=== PATIENT | female | born 1960 | race Caucasian/White ===

== ENCOUNTER 2020-06-21 15:21 | Inpatient (IN) | payer BC, MEDICARE ==
[2020-06-21] MEDS: Sodium Chloride 0.9% 10 ML Syringe FLUSH PRN (16:08)
[2020-06-21] MEDS: Lactated Ringers 1,000 ML IV SCH (16:10)
[2020-06-21] MEDS ORDERED: PEG 400/Propylene Glycol Ophth Soln 15 ML Bottle EYEBOTH PRN (17:21)
[2020-06-21] MEDS ORDERED: Lactated Ringers 1,000 ML IV SCH (17:30)
[2020-06-21] MEDS ORDERED: Iopamidol 755 Mg/ML 100 ML Bottle IV ONE (17:32)
[2020-06-21] MEDS: Ondansetron 4 MG/2 ML SDV IVPUSH PRN ×2 (17:59→22:19)
[2020-06-21] MEDS ORDERED: Diatrizoate Meglumine/Diatrizoate Sodium 37% 30 ML Bottle PO ONE (18:01)
[2020-06-21] MEDS ORDERED: metroNIDAZOLE/Normal Saline 500 MG in Premix Bag 1 BAG IV SCH (18:30)
--- NOTE | 2020-06-21 18:31 | PCM.SN.2 ---
- Free Text/Narrative Note: CT scan reviewed with radiology. there is a segment of the sigmoid suggestive of diverticulitis. no abscess peritonitis noted. fair amount of stool in colon hemangioma vs cyst posteriorly right lobe of liver. I will empirically start an antibiotic.
--- NOTE | 2020-06-21 18:55 | CT ---
INDICATION: Left lower quadrant abdominal pain, anemia. CT ABDOMEN AND PELVIS WITH CONTRAST: Spiral 3.75 mm axial sections were obtained through the abdomen and pelvis with oral and IV contrast (67 mL Isovue- 370 at 2 mL per second) with sagittal and coronal reconstructions 06/21/20 - no comparisons. Total exam DLP was 448.65 mGy-cm. A small low-density lesion is noted in the posterior right lobe of the liver near the diaphragm and may represent hemangioma although other etiology could not be excluded. Followup study may be warranted depending upon clinical correlation. The liver was otherwise unremarkable except to note evidence of cholecystectomy. The spleen, pancreas, common bile duct, adrenal glands, and kidneys, appeared essentially normal. No retroperitoneal mass was identified. The appendix is absent compatible with history of its removal. No evidence of free air or bowel obstruction was identified. No inguinal or ventral hernia was seen. There does appear to be thickening of the wall of the gastric antrum which could be on the basis of peptic ulcer disease, but should be correlated clinically. Urinary bladder was unremarkable, except to note absence of the uterus compatible with history of hysterectomy. No additional mass lesions, organomegaly, or free fluid collections were identified in the abdomen or pelvis. Multiple phleboliths are noted in the pelvis. At the distal descending - proximal sigmoid colon, there is a loop of sigmoid colon extending into the pelvis inferiorly with slightly thickened wall suggested, this could represent a mild degree of diverticulitis or even colitis and should be correlated clinically in that regard. IMPRESSION: 1. Thickened wall gastric antrum could represent peptic ulcer disease, but should be correlated clinically. 2. Slightly thickened wall suggested in distal descending through proximal to mid sigmoid colon could represent colitis or possibly a mild degree of diverticulitis, no abscess or free air was seen. 3. Post hysterectomy, post appendectomy, post cholecystectomy. 4. Small low-density lesion in the posterior right lobe of the liver near the diaphragm, followup may be warranted, but most likely represents hemangioma. Report was given in person to Dr. Boyce immediately after the examination was completed. [facility]
[2020-06-21] MEDS: Levofloxacin/Dextrose 5%-Water 750 MG in Premix Bag 1 BAG IV SCH (19:25)
[2020-06-21] MEDS: Pregabalin 75 MG Cap PO SCH (21:04)
[2020-06-21] MEDS: metroNIDAZOLE/Normal Saline 500 MG in Premix Bag 1 BAG IV SCH (21:04)
[2020-06-21] MEDS: Acetaminophen 325 MG Tab PO PRN (21:28)
[2020-06-21] MEDS: busPIRone 15 MG Tab PO SCH (21:28)
[2020-06-22] MEDS: Lactated Ringers 1,000 ML IV SCH ×2 (02:17→16:54)
[2020-06-22] MEDS: Ondansetron 4 MG/2 ML SDV IVPUSH PRN ×2 (02:21→22:07)
[2020-06-22] MEDS: metroNIDAZOLE/Normal Saline 500 MG in Premix Bag 1 BAG IV SCH ×3 (05:11→20:35)
[2020-06-22] MEDS ORDERED: Albuterol/Ipratropium 3.0-0.5 MG/3 ML Neb Soln NEB ONE (07:51)
[2020-06-22] MEDS ORDERED: Pantoprazole 80 MG in Sodium Chloride 0.9% 100 ML IV ONE (08:05)
--- NOTE | 2020-06-22 08:09 | PCM.OPNOTE ---
- General Post-Op/Procedure Note Date of Surgery/Procedure: 06/22/20 Operative Procedure(s): egd with cold forceps biopsy Findings: antral ulcer Pre Op Diagnosis: melena Post-Op Diagnosis: antral ulcer Primary Surgeon: Yoav Boyce Anesthesia Provider: Yohan Lama Pathology: ulcer edge Complications: None Condition: Good Free Text/Narrative:: Intake & Output 06/21/20 06/22/20 06/22/20 22:59 06:59 14:59 Intake Total 9794 1198 Balance 6973 1198 see dictation #[id number]
[2020-06-22] MEDS: Morphine 2 MG/ML SYRINGE IVPUSH PRN ×2 (09:54→16:57)
[2020-06-22] MEDS: buPROPion 150 MG Tab.ER PO SCH (09:57)
[2020-06-22] MEDS: DULoxetine 30 MG Cap PO SCH (09:57)
[2020-06-22] MEDS: busPIRone 15 MG Tab PO SCH ×2 (09:58→20:24)
[2020-06-22] MEDS: Pregabalin 75 MG Cap PO SCH ×2 (10:03→20:24)
--- NOTE | 2020-06-22 10:22 | OR ---
DATE OF OPERATION: 06/21/2020 SURGEON: Yoav Boyce MD PROCEDURE PERFORMED: EGD with cold forceps biopsy. PREOPERATIVE DIAGNOSIS: History of melena and anemia. POSTOPERATIVE DIAGNOSIS: Antral ulcer. INDICATIONS FOR PROCEDURE: This is a 60-year-old white female who is admitted yesterday. She has a history of anemia as well as melenic stools. She was offered and accepted an EGD. DESCRIPTION OF PROCEDURE: After an excellent IV sedation was administered, bite block was inserted. Flexible endoscope was passed without difficulty down the patient's esophagus into the stomach. Stomach was insufflated. Scope was passed through the pylorus, second portion of the duodenum and slowly withdrawn. The following findings were noted. The duodenum was unremarkable. In the antrum, there was an antral ulcer with inflammation around the edges. No clots or visible vessel was noted. Circumferential biopsies were taken and submitted as well as photo. The esophagus was essentially unremarkable. The patient tolerated the procedure well, was taken to recovery room. We will be starting her on some IV Protonix. /[id number] /MODL
[2020-06-22] MEDS: Sucralfate 1 GM Tab PO SCH ×3 (11:58→20:24)
[2020-06-22] MEDS ORDERED: Morphine 2 MG/ML SYRINGE IVPUSH ONE (12:06)
[2020-06-22] MEDS ORDERED: Bisacodyl 10 MG Supp RECTAL PRN (12:07)
[2020-06-22] MEDS: Polyethylene Glycol 3350 Powder 17 GM Packet PO SCH ×2 (12:52→20:24)
[2020-06-22] MEDS: Docusate Sodium 100 MG Cap PO SCH (12:53)
[2020-06-22] MEDS: Levofloxacin/Dextrose 5%-Water 750 MG in Premix Bag 1 BAG IV SCH (18:22)
[2020-06-22] MEDS: Acetaminophen 325 MG Tab PO PRN (20:34)
[2020-06-23] MEDS: Morphine 2 MG/ML SYRINGE IVPUSH PRN ×3 (00:30→22:04)
[2020-06-23] MEDS: Lactated Ringers 1,000 ML IV SCH (03:46)
[2020-06-23] MEDS: metroNIDAZOLE/Normal Saline 500 MG in Premix Bag 1 BAG IV SCH (05:13)
[2020-06-23] MEDS: busPIRone 15 MG Tab PO SCH ×2 (08:21→20:56)
[2020-06-23] MEDS: Sucralfate 1 GM Tab PO SCH ×4 (08:21→20:56)
[2020-06-23] MEDS: DULoxetine 30 MG Cap PO SCH (08:21)
[2020-06-23] MEDS: Docusate Sodium 100 MG Cap PO SCH (08:22)
[2020-06-23] MEDS: Polyethylene Glycol 3350 Powder 17 GM Packet PO SCH ×2 (08:22→20:56)
[2020-06-23] MEDS: buPROPion 150 MG Tab.ER PO SCH (08:23)
[2020-06-23] MEDS: Pregabalin 75 MG Cap PO SCH ×2 (08:26→20:56)
--- NOTE | 2020-06-23 09:51 | PCM.SURGPN ---
- General Info Date of Service: 06/23/20 POD#: 1 Functional Status: Reports: Pain Controlled, Tolerating Diet, Ambulating, Urinating, Other (passing flatus has not moved bowels yet) - Patient Data Vitals - Most Recent: Last Vital Signs Temp 97.9 F 06/23/20 05:23 Pulse 64 06/23/20 05:23 Resp 16 06/23/20 05:23 BP 108/60 06/23/20 05:23 Pulse Ox 98 06/23/20 05:23 Weight - Most Recent: 58.922 kg I&O - Last 24 Hours: Intake & Output 06/22/20 06/23/20 06/23/20 22:59 06:59 14:59 Intake Total 1647 1013 Balance 1647 1013 Lab Results Last 24 Hrs: Laboratory Results - last 24 hr 06/23/20 Range/Units 06:20 WBC 4.1 (3.0-10.3) x10-3/uL RBC 2.40 L (3.60-5.20) x10(6)uL Hgb 7.8 L (11.4-15.5) g/dL Hct 23.2 L (34.2-48.2) % MCV 96.3 (76.7-100.5) fL MCH 32.7 (23.9-33.9) pg MCHC 33.9 (31.9-34.8) g/dL RDW 12.2 L (12.3-16.5) % Plt Count 172 (151-488) x10(3)uL MPV 9.5 (7.1-12.4) fL Add Manual Diff Yes Neutrophils % (Manual) 82 (46-82) % Lymphocytes % (Manual) 13 (13-37) % Monocytes % (Manual) 4 (4-12) % Eosinophils % (Manual) 1 (0-5) % Polychromasia Few Microcytosis Moderate H Med Orders - Current: Current Medications Acetaminophen (Tylenol) 650 mg PO Q6H PRN PRN Reason: Pain Last Admin: 06/22/20 20:34 Dose: 650 mg Documented by: Bisacodyl (Dulcolax) 10 mg RECTAL BID PRN PRN Reason: Constipation Bupropion HCl (Wellbutrin Xl) 300 mg PO DAILY [facility] Last Admin: 06/23/20 08:23 Dose: 300 mg Documented by: Buspirone HCl (Buspar) 7.5 mg PO BID [facility] Last Admin: 06/23/20 08:21 Dose: 7.5 mg Documented by: Docusate Sodium (Colace) 200 mg PO DAILY [facility] Last Admin: 06/23/20 08:22 Dose: 200 mg Documented by: Duloxetine HCl (Cymbalta) 30 mg PO DAILY [facility] Last Admin: 06/23/20 08:21 Dose: 30 mg Documented by: Morphine Sulfate (Morphine) 2 mg IVPUSH Q4H PRN PRN Reason: Pain Last Admin: 06/23/20 00:30 Dose: 2 mg Documented by: Ondansetron HCl (Zofran) 4 mg IVPUSH Q4H PRN PRN Reason: Nausea/Vomiting Last Admin: 06/22/20 22:07 Dose: 4 mg Documented by: Polyethylene Glycol (Miralax) 17 gm PO BID [facility] Last Admin: 06/23/20 08:22 Dose: 17 gm Documented by: Pregabalin (Lyrica) 75 mg PO BID [facility] Last Admin: 06/23/20 08:26 Dose: 75 mg Documented by: Propylene Glycol (Systane Lubricant) 0 ml EYEBOTH BID PRN PRN Reason: Dry Eyes Sodium Chloride (Saline Flush) 10 ml FLUSH ASDIRECTED PRN PRN Reason: Keep Vein Open Last Admin: 06/21/20 16:08 Dose: 10 ml Documented by: Sucralfate (Carafate) 1 gm PO QIDACANDBED [facility] Last Admin: 06/23/20 08:21 Dose: 1 gm Documented by: Discontinued Medications Albuterol/Ipratropium (Duoneb 3.0-0.5 Mg/3 Ml) 3 ml NEB ONETIME ONE Stop: 06/22/20 07:52 Last Admin: 06/22/20 08:11 Dose: 3 ml Documented by: Diatrizoate Meglum/Diatrizoate Sod (Gastrografin 37%) 30 ml PO . DIRECTED ONE Stop: 06/21/20 18:02 Last Admin: 06/21/20 18:11 Dose: 30 ml Documented by: Lactated Ringer's (Ringers, Lactated) 1,000 mls @ 125 mls/hr IV ASDIRECTED [facility] Last Admin: 06/23/20 03:46 Dose: 125 mls/hr Documented by: Lactated Ringer's (Ringers, Lactated) 1,000 mls @ 999 mls/hr IV ASDIRECTED [facility] Last Admin: 06/21/20 17:55 Dose: 999 mls/hr Documented by: Levofloxacin/Dextrose 750 mg/ (Premix) 150 mls @ 100 mls/hr IV Q24H [facility] Last Admin: 06/22/20 18:22 Dose: 100 mls/hr Documented by: Metronidazole 500 mg/ Premix 100 mls @ 100 mls/hr IV Q8H [facility] Last Admin: 06/21/20 20:48 Dose: Not Given Documented by: Metronidazole 500 mg/ Premix 100 mls @ 100 mls/hr IV Q8H [facility] Last Admin: 06/23/20 05:13 Dose: 100 mls/hr Documented by: Pantoprazole Sodium 80 mg/ (Sodium Chloride) 100 mls @ 200 mls/hr IV .BOLUS ONE Stop: 06/22/20 08:34 Last Admin: 06/22/20 08:52 Dose: 200 mls/hr Documented by: Iopamidol (Isovue-370 (76%)) 67 ml IV . DIRECTED ONE Stop: 06/21/20 17:33 Last Admin: 06/21/20 18:11 Dose: 67 ml Documented by: Morphine Sulfate (Morphine) 2 mg IVPUSH ONETIME ONE Stop: 06/22/20 12:07 Last Admin: 06/22/20 12:27 Dose: 2 mg Documented by: - Exam General: Alert, Oriented, Cooperative, No Acute Distress Lungs: Clear to Auscultation, Normal Respiratory Effort Cardiovascular: Regular Rate, Regular Rhythm GI/Abdominal Exam: Normal Bowel Sounds, Soft, Non-Tender (improved PE. ) Sepsis Event Note - Evaluation Sepsis Screening Result: No Definite Risk - Focused Exam Vital Signs: Vital Signs Temp Pulse Resp BP Pulse Ox 06/23/20 05:23 97.9 F 64 16 108/60 98 06/23/20 00:00 16 - Problem List & Annotations (1) Diverticulitis large intestine w/o perforation or abscess w/o bleeding SNOMED Code(s): 5781312 Code(s): K57.32 - DVTRCLI OF LG INT W/O PERFORATION OR ABSCESS W/O BLEEDING Status: Acute Current Visit: Yes (2) Gastric ulcer SNOMED Code(s): 053105389 Code(s): K25.9 - GASTRIC ULCER, UNSP ACUTE OR CHRONIC, W/O HEMOR OR PERF Status: Acute Current Visit: Yes Qualifiers: Gastric ulcer chronicity: unspecified ulcer chronicity Gastric ulcer complication status: without hemorrhage or perforation Qualified Code(s): K25.9 - Gastric ulcer, unspecified as acute or chronic, without hemorrhage or perforation - Problem List Review Problem List Initiated/Reviewed/Updated: Yes - My Orders Last 24 Hours: Active Orders 24 hr Category Date Time Status Regular Diet [DIET] Diet 06/23/20 Breakfast Active CBC WITH AUTO DIFF [HEME] AM Lab 06/23/20 06:20 Results PERIPH BLOOD SMEAR PATHOLOGIST [HEME] AM Lab 06/23/20 06:20 Results DULoxetine [Cymbalta] Med 06/22/20 09:00 Active 30 mg PO DAILY Docusate Sodium [Colace] Med 06/22/20 12:30 Active 200 mg PO DAILY Sucralfate [Carafate] Med 06/22/20 11:30 Active 1 gm PO QIDACANDBED bisacodyL [Dulcolax] Med 06/22/20 12:07 Active 10 mg RECTAL BID PRN buPROPion [Wellbutrin XL] Med 06/22/20 09:00 Active 300 mg PO DAILY levoFLOXacin [Levaquin] Med 06/23/20 09:45 Ordered 750 mg PO Q24H metroNIDAZOLE [Flagyl] Med 06/23/20 10:00 Ordered 500 mg PO Q8H polyethylene glycoL 3350 [MiraLAX] Med 06/22/20 12:30 Active 17 gm PO BID Convert IV to Saline Lock [OM.PC] Routine Oth 06/23/20 09:46 Ordered Medication Orders Acetaminophen (Tylenol) 650 mg PO Q6H PRN PRN Reason: Pain Last Admin: 06/22/20 20:34 Dose: 650 mg Documented by: LUZ MARINA Admin: 06/21/20 21:28 Dose: 650 mg Documented by: LUZ MARINA Bisacodyl (Dulcolax) 10 mg RECTAL BID PRN PRN Reason: Constipation Bupropion HCl (Wellbutrin Xl) 300 mg PO DAILY [facility] Last Admin: 06/23/20 08:23 Dose: 300 mg Documented by: Admin: 06/22/20 09:57 Dose: 300 mg Documented by: CATHERINE Buspirone HCl (Buspar) 7.5 mg PO BID [facility] Last Admin: 06/23/20 08:21 Dose: 7.5 mg Documented by: Admin: 06/22/20 20:24 Dose: 7.5 mg Documented by: LUZ MARINA Admin: 06/22/20 09:58 Dose: 7.5 mg Documented by: Admin: 06/21/20 21:28 Dose: 7.5 mg Documented by: LUZ MARINA Docusate Sodium (Colace) 200 mg PO DAILY [facility] Last Admin: 06/23/20 08:22 Dose: 200 mg Documented by: Admin: 06/22/20 12:53 Dose: 200 mg Documented by: DIANN Duloxetine HCl (Cymbalta) 30 mg PO DAILY [facility] Last Admin: 06/23/20 08:21 Dose: 30 mg Documented by: Admin: 06/22/20 09:57 Dose: 30 mg Documented by: CATHERINE Morphine Sulfate (Morphine) 2 mg IVPUSH Q4H PRN PRN Reason: Pain Last Admin: 06/23/20 00:30 Dose: 2 mg Documented by: LUZ MARINA Admin: 06/22/20 16:57 Dose: 2 mg Documented by: Admin: 06/22/20 09:54 Dose: 2 mg Documented by: CATHERINE Ondansetron HCl (Zofran) 4 mg IVPUSH Q4H PRN PRN Reason: Nausea/Vomiting Last Admin: 06/22/20 22:07 Dose: 4 mg Documented by: LUZ MARINA Admin: 06/22/20 02:21 Dose: 4 mg Documented by: LUZ MARINA Admin: 06/21/20 22:19 Dose: 4 mg Documented by: LUZ MARINA Admin: 06/21/20 17:59 Dose: 4 mg Documented by: NATASHA Polyethylene Glycol (Miralax) 17 gm PO BID [facility] Last Admin: 06/23/20 08:22 Dose: 17 gm Documented by: Admin: 06/22/20 20:24 Dose: 17 gm Documented by: LUZ MARINA Admin: 06/22/20 12:52 Dose: 17 gm Documented by: DIANN Pregabalin (Lyrica) 75 mg PO BID [facility] Last Admin: 06/23/20 08:26 Dose: 75 mg Documented by: Admin: 06/22/20 20:24 Dose: 75 mg Documented by: LUZ MARINA Admin: 06/22/20 10:03 Dose: 75 mg Documented by: Admin: 06/21/20 21:04 Dose: 75 mg Documented by: LUZ MARINA Propylene Glycol (Systane Lubricant) 0 ml EYEBOTH BID PRN PRN Reason: Dry Eyes Sodium Chloride (Saline Flush) 10 ml FLUSH ASDIRECTED PRN PRN Reason: Keep Vein Open Last Admin: 06/21/20 16:08 Dose: 10 ml Documented by: NATASHA Sucralfate (Carafate) 1 gm PO QIDACANDBED [facility] Last Admin: 06/23/20 08:21 Dose: 1 gm Documented by: Admin: 06/22/20 20:24 Dose: 1 gm Documented by: LUZ MARINA Admin: 06/22/20 17:01 Dose: 1 gm Documented by: Admin: 06/22/20 11:58 Dose: 1 gm Documented by: DIANN - Assessment Assessment (Free Text/Narrative):: has a hx of chronic constipation. H/H stable. diverticulitis appears to be improving with broader spectrum antibiotics. - Plan Plan (Free Text/Narrative):: will convert to po antibiotics. saline lock iv. will discharge if she moves her bowels, Her smear was abnl and is under going review by pathologist.
[2020-06-23] MEDS: Sodium Chloride 0.9% 10 ML Syringe FLUSH PRN ×3 (10:04→22:04)
[2020-06-23] MEDS ORDERED: Sodium Phosphate,Monobasic/Sodium Phosphate,Dibasic Enema 133 ML Bottle RECTAL ONE (13:18)
[2020-06-23] MEDS: metroNIDAZOLE 500 MG Tab PO SCH ×2 (13:30→20:56)
[2020-06-23] MEDS: Pantoprazole 40 MG Tab.CR PO SCH (17:48)
[2020-06-23] MEDS: Lubiprostone 24 MCG Cap PO SCH (18:16)
[2020-06-23] MEDS ORDERED: Levofloxacin 750 MG Tab PO SCH (18:30)
[2020-06-23] MEDS ORDERED: busPIRone 5 MG Tab ONE (20:47)
[2020-06-23] MEDS: Acetaminophen 325 MG Tab PO PRN (20:59)
[2020-06-24] MEDS: Acetaminophen 325 MG Tab PO PRN (05:07)
[2020-06-24] MEDS: Pantoprazole 40 MG Tab.CR PO SCH (05:08)
[2020-06-24] MEDS: metroNIDAZOLE 500 MG Tab PO SCH (05:08)
[2020-06-24] MEDS ORDERED: Pantoprazole 40 MG Tab.CR PO SCH (06:00)
[2020-06-24] MEDS: Sucralfate 1 GM Tab PO SCH ×2 (08:37→11:29)
[2020-06-24] MEDS: DULoxetine 30 MG Cap PO SCH (08:37)
[2020-06-24] MEDS: busPIRone 15 MG Tab PO SCH (08:37)
[2020-06-24] MEDS: buPROPion 150 MG Tab.ER PO SCH (08:38)
[2020-06-24] MEDS: Morphine 2 MG/ML SYRINGE IVPUSH PRN (08:43)
[2020-06-24] MEDS: Sodium Chloride 0.9% 10 ML Syringe FLUSH PRN (08:44)
--- NOTE | 2020-06-24 09:56 | PCM.SURGPN ---
- General Info Date of Service: 06/24/20 - Review of Systems Pulmonary: Reports: No Symptoms Cardiovascular: Reports: No Symptoms Gastrointestinal: Reports: Other (Pt notes 5 bms of watery stools since starting amiteza. has some crampy abd pain. ) - Patient Data Vitals - Most Recent: Last Vital Signs Temp 97.8 F 06/24/20 08:00 Pulse 80 06/24/20 08:00 Resp 16 06/24/20 08:00 BP 112/54 L 06/24/20 08:00 Pulse Ox 99 06/24/20 08:00 Weight - Most Recent: 58.922 kg Med Orders - Current: Current Medications Acetaminophen (Tylenol) 650 mg PO Q6H PRN PRN Reason: Pain Last Admin: 06/24/20 05:07 Dose: 650 mg Documented by: Bisacodyl (Dulcolax) 10 mg RECTAL BID PRN PRN Reason: Constipation Last Admin: 06/23/20 10:00 Dose: 10 mg Documented by: Bupropion HCl (Wellbutrin Xl) 300 mg PO DAILY [facility] Last Admin: 06/24/20 08:38 Dose: 300 mg Documented by: Buspirone HCl (Buspar) 7.5 mg PO BID [facility] Last Admin: 06/24/20 08:37 Dose: 7.5 mg Documented by: Docusate Sodium (Colace) 200 mg PO DAILY [facility] Last Admin: 06/23/20 08:22 Dose: 200 mg Documented by: Duloxetine HCl (Cymbalta) 30 mg PO DAILY [facility] Last Admin: 06/24/20 08:37 Dose: 30 mg Documented by: Levofloxacin (Levaquin) 750 mg PO Q24H [facility] Last Admin: 06/23/20 18:21 Dose: 750 mg Documented by: Lubiprostone (Amitiza) 24 mcg PO BIDMEALS [facility] Last Admin: 06/23/20 18:16 Dose: 24 mcg Documented by: Metronidazole (Flagyl) 500 mg PO Q8H [facility] Last Admin: 06/24/20 05:08 Dose: 500 mg Documented by: Morphine Sulfate (Morphine) 2 mg IVPUSH Q4H PRN PRN Reason: Pain Last Admin: 06/24/20 08:43 Dose: 2 mg Documented by: Ondansetron HCl (Zofran) 4 mg IVPUSH Q4H PRN PRN Reason: Nausea/Vomiting Last Admin: 06/22/20 22:07 Dose: 4 mg Documented by: Pantoprazole Sodium (Protonix) 40 mg PO 0600 [facility] Last Admin: 06/24/20 05:08 Dose: 40 mg Documented by: Polyethylene Glycol (Miralax) 17 gm PO BID [facility] Last Admin: 06/23/20 20:56 Dose: 17 gm Documented by: Pregabalin (Lyrica) 75 mg PO BID [facility] Last Admin: 06/23/20 20:56 Dose: 75 mg Documented by: Propylene Glycol (Systane Lubricant) 0 ml EYEBOTH BID PRN PRN Reason: Dry Eyes Sodium Chloride (Saline Flush) 10 ml FLUSH ASDIRECTED PRN PRN Reason: Keep Vein Open Last Admin: 06/24/20 08:44 Dose: 10 ml Documented by: Sucralfate (Carafate) 1 gm PO QIDACANDBED [facility] Last Admin: 06/24/20 08:37 Dose: 1 gm Documented by: Discontinued Medications Albuterol/Ipratropium (Duoneb 3.0-0.5 Mg/3 Ml) 3 ml NEB ONETIME ONE Stop: 06/22/20 07:52 Last Admin: 06/22/20 08:11 Dose: 3 ml Documented by: Buspirone HCl (Buspar) Confirm Administered Dose 10 mg .ROUTE .STK-MED ONE Stop: 06/23/20 20:48 Last Admin: 06/23/20 20:55 Dose: Not Given Documented by: Diatrizoate Meglum/Diatrizoate Sod (Gastrografin 37%) 30 ml PO . DIRECTED ONE Stop: 06/21/20 18:02 Last Admin: 06/21/20 18:11 Dose: 30 ml Documented by: Lactated Ringer's (Ringers, Lactated) 1,000 mls @ 125 mls/hr IV ASDIRECTED [facility] Last Admin: 06/23/20 03:46 Dose: 125 mls/hr Documented by: Lactated Ringer's (Ringers, Lactated) 1,000 mls @ 999 mls/hr IV ASDIRECTED [facility] Last Admin: 06/21/20 17:55 Dose: 999 mls/hr Documented by: Levofloxacin/Dextrose 750 mg/ (Premix) 150 mls @ 100 mls/hr IV Q24H [facility] Last Admin: 06/22/20 18:22 Dose: 100 mls/hr Documented by: Metronidazole 500 mg/ Premix 100 mls @ 100 mls/hr IV Q8H [facility] Last Admin: 06/21/20 20:48 Dose: Not Given Documented by: Metronidazole 500 mg/ Premix 100 mls @ 100 mls/hr IV Q8H [facility] Last Admin: 06/23/20 05:13 Dose: 100 mls/hr Documented by: Pantoprazole Sodium 80 mg/ (Sodium Chloride) 100 mls @ 200 mls/hr IV .BOLUS ONE Stop: 06/22/20 08:34 Last Admin: 06/22/20 08:52 Dose: 200 mls/hr Documented by: Iopamidol (Isovue-370 (76%)) 67 ml IV . DIRECTED ONE Stop: 06/21/20 17:33 Last Admin: 06/21/20 18:11 Dose: 67 ml Documented by: Morphine Sulfate (Morphine) 2 mg IVPUSH ONETIME ONE Stop: 06/22/20 12:07 Last Admin: 06/22/20 12:27 Dose: 2 mg Documented by: Pantoprazole Sodium (Protonix) 40 mg PO 0600 [facility] Sodium Biphosphate/Sodium Phosphate (Fleet Enema) 133 ml RECTAL ONETIME ONE Stop: 06/23/20 13:19 Last Admin: 06/23/20 14:26 Dose: 133 ml Documented by: - Exam General: Alert, Oriented, Cooperative, No Acute Distress Lungs: Clear to Auscultation, Normal Respiratory Effort Cardiovascular: Regular Rate, Regular Rhythm GI/Abdominal Exam: Normal Bowel Sounds, Soft, Non-Tender, No Distention. No: Guarding, Rigid, Tender Sepsis Event Note - Evaluation Sepsis Screening Result: No Definite Risk - Focused Exam Vital Signs: Vital Signs Temp Pulse Resp BP Pulse Ox 06/24/20 08:00 97.8 F 80 16 112/54 L 99 06/24/20 04:00 98.2 F 78 18 100/62 98 06/24/20 00:00 98.2 F 72 18 118/61 98 - Problem List & Annotations (1) Diverticulitis large intestine w/o perforation or abscess w/o bleeding SNOMED Code(s): 1553701 Code(s): K57.32 - DVTRCLI OF LG INT W/O PERFORATION OR ABSCESS W/O BLEEDING Status: Acute Current Visit: Yes (2) Gastric ulcer SNOMED Code(s): 090660035 Code(s): K25.9 - GASTRIC ULCER, UNSP ACUTE OR CHRONIC, W/O HEMOR OR PERF Status: Acute Current Visit: Yes Qualifiers: Gastric ulcer chronicity: unspecified ulcer chronicity Gastric ulcer complication status: without hemorrhage or perforation Qualified Code(s): K25.9 - Gastric ulcer, unspecified as acute or chronic, without hemorrhage or perforation - Problem List Review Problem List Initiated/Reviewed/Updated: Yes - My Orders Last 24 Hours: Active Orders 24 hr Category Date Time Status Lubiprostone [Amitiza] Med 06/23/20 18:00 Active 24 mcg PO BIDMEALS Pantoprazole [ProTONIX] Med 06/23/20 17:29 Active 40 mg PO 0600 levoFLOXacin [Levaquin] Med 06/23/20 18:30 Active 750 mg PO Q24H metroNIDAZOLE [Flagyl] Med 06/23/20 13:00 Active 500 mg PO Q8H Convert IV to Saline Lock [OM.PC] Routine Oth 06/23/20 09:46 Ordered Medication Orders Acetaminophen (Tylenol) 650 mg PO Q6H PRN PRN Reason: Pain Last Admin: 06/24/20 05:07 Dose: 650 mg Documented by: Admin: 06/23/20 20:59 Dose: 650 mg Documented by: Admin: 06/22/20 20:34 Dose: 650 mg Documented by: LUZ MARINA Admin: 06/21/20 21:28 Dose: 650 mg Documented by: LUZ MARINA Bisacodyl (Dulcolax) 10 mg RECTAL BID PRN PRN Reason: Constipation Last Admin: 06/23/20 10:00 Dose: 10 mg Documented by: CATHERINE Bupropion HCl (Wellbutrin Xl) 300 mg PO DAILY [facility] Last Admin: 06/24/20 08:38 Dose: 300 mg Documented by: Admin: 06/23/20 08:23 Dose: 300 mg Documented by: Admin: 06/22/20 09:57 Dose: 300 mg Documented by: CATHERINE Buspirone HCl (Buspar) 7.5 mg PO BID [facility] Last Admin: 06/24/20 08:37 Dose: 7.5 mg Documented by: Admin: 06/23/20 20:56 Dose: 7.5 mg Documented by: Admin: 06/23/20 08:21 Dose: 7.5 mg Documented by: Admin: 06/22/20 20:24 Dose: 7.5 mg Documented by: LUZ MARINA Admin: 06/22/20 09:58 Dose: 7.5 mg Documented by: Admin: 06/21/20 21:28 Dose: 7.5 mg Documented by: LUZ MARINA Docusate Sodium (Colace) 200 mg PO DAILY [facility] Last Admin: 06/23/20 08:22 Dose: 200 mg Documented by: Admin: 06/22/20 12:53 Dose: 200 mg Documented by: DIANN Duloxetine HCl (Cymbalta) 30 mg PO DAILY [facility] Last Admin: 06/24/20 08:37 Dose: 30 mg Documented by: Admin: 06/23/20 08:21 Dose: 30 mg Documented by: Admin: 06/22/20 09:57 Dose: 30 mg Documented by: CATHERINE Levofloxacin (Levaquin) 750 mg PO Q24H [facility] Last Admin: 06/23/20 18:21 Dose: 750 mg Documented by: CATHERINE Lubiprostone (Amitiza) 24 mcg PO BIDMEALS [facility] Last Admin: 06/23/20 18:16 Dose: 24 mcg Documented by: CATHERINE Metronidazole (Flagyl) 500 mg PO Q8H [facility] Last Admin: 06/24/20 05:08 Dose: 500 mg Documented by: Admin: 06/23/20 20:56 Dose: 500 mg Documented by: Admin: 06/23/20 13:30 Dose: 500 mg Documented by: CATHERINE Morphine Sulfate (Morphine) 2 mg IVPUSH Q4H PRN PRN Reason: Pain Last Admin: 06/24/20 08:43 Dose: 2 mg Documented by: Admin: 06/23/20 22:04 Dose: 2 mg Documented by: Admin: 06/23/20 14:37 Dose: 2 mg Documented by: Admin: 06/23/20 00:30 Dose: 2 mg Documented by: LUZ MARINA Admin: 06/22/20 16:57 Dose: 2 mg Documented by: Admin: 06/22/20 09:54 Dose: 2 mg Documented by: CATHERINE Ondansetron HCl (Zofran) 4 mg IVPUSH Q4H PRN PRN Reason: Nausea/Vomiting Last Admin: 06/22/20 22:07 Dose: 4 mg Documented by: LUZ MARINA Admin: 06/22/20 02:21 Dose: 4 mg Documented by: LUZ MARINA Admin: 06/21/20 22:19 Dose: 4 mg Documented by: LUZ MARINA Admin: 06/21/20 17:59 Dose: 4 mg Documented by: NATASHA Pantoprazole Sodium (Protonix) 40 mg PO 0600 [facility] Last Admin: 06/24/20 05:08 Dose: 40 mg Documented by: Admin: 06/23/20 17:48 Dose: 40 mg Documented by: CATHERINE Polyethylene Glycol (Miralax) 17 gm PO BID [facility] Last Admin: 06/23/20 20:56 Dose: 17 gm Documented by: Admin: 06/23/20 08:22 Dose: 17 gm Documented by: Admin: 06/22/20 20:24 Dose: 17 gm Documented by: LUZ MARINA Admin: 06/22/20 12:52 Dose: 17 gm Documented by: DIANN Pregabalin (Lyrica) 75 mg PO BID [facility] Last Admin: 06/23/20 20:56 Dose: 75 mg Documented by: Admin: 06/23/20 08:26 Dose: 75 mg Documented by: Admin: 06/22/20 20:24 Dose: 75 mg Documented by: LUZ MARINA Admin: 06/22/20 10:03 Dose: 75 mg Documented by: Admin: 06/21/20 21:04 Dose: 75 mg Documented by: LUZ MARINA Propylene Glycol (Systane Lubricant) 0 ml EYEBOTH BID PRN PRN Reason: Dry Eyes Sodium Chloride (Saline Flush) 10 ml FLUSH ASDIRECTED PRN PRN Reason: Keep Vein Open Last Admin: 06/24/20 08:44 Dose: 10 ml Documented by: Admin: 06/23/20 22:04 Dose: 10 ml Documented by: Admin: 06/23/20 14:38 Dose: 10 ml Documented by: Admin: 06/23/20 10:04 Dose: 10 ml Documented by: Admin: 06/21/20 16:08 Dose: 10 ml Documented by: NATASHA Sucralfate (Carafate) 1 gm PO QIDACANDBZOEY [facility] Admin: 06/24/20 08:37 Dose: 1 gm Documented by: Admin: 06/23/20 20:56 Dose: 1 gm Documented by: Admin: 06/23/20 17:21 Dose: 1 gm Documented by: Admin: 06/23/20 11:16 Dose: 1 gm Documented by: Admin: 06/23/20 08:21 Dose: 1 gm Documented by: Admin: 06/22/20 20:24 Dose: 1 gm Documented by: LUZ MARINA Admin: 06/22/20 17:01 Dose: 1 gm Documented by: Admin: 06/22/20 11:58 Dose: 1 gm Documented by: DIANN - Assessment Assessment (Free Text/Narrative):: unremarkable abd exam. appears ready for discharge. - Plan Plan (Free Text/Narrative):: again reiterated with the pt that there is no special diet. She notes straining at stool which she has done her entire life and this may be a result of habit. notes that the pain she is having is crampy in nature and reiterated that narcotics are really not the answer and may contribute to her constipation. My recommendation at this point is to continue Amitiza. High fiber diet. stop the cocktail of stool softeners Mirallax which she takes constantly during the day. will discharge to home. heating pad to abdomen.
--- NOTE | 2020-06-24 10:12 | PCM.DCSUM1 ---
Discharge Summary - Hospital Course Free Text/Narrative:: Pt was admitted and underwent a ct scan of the abdomen. This demonstrated a small area of the what appeared to be diverticulitis in the sigmoid colon. She also had a fair amount of stool through out the colon. She was started on IV Flagyl and Levaquin. The pain that she was having in the llq did improve. Eventually she was converted to po intake. The follow day she underwent an EGD. An antral ulcer was found. She was started on Protonix, and carafate. Her H/H was stable. A peripheral smear was ordered for some abnl in the differential. Results was pending. With regards to her bowel function. She was started on Amitiza for her chronic constipation. Has started to have results. Diagnosis: Stroke: No - Discharge Data Discharge Date: 06/24/20 Discharge Disposition: Home, Self-Care 01 Condition: Good - Referral to Home Health Primary Care Physician: Yohan Everett MD - Discharge Diagnosis/Problem(s) (1) Diverticulitis large intestine w/o perforation or abscess w/o bleeding SNOMED Code(s): 6987881 ICD Code: K57.32 - DVTRCLI OF LG INT W/O PERFORATION OR ABSCESS W/O BLEEDING Status: Acute Current Visit: Yes (2) Gastric ulcer SNOMED Code(s): 337379966 ICD Code: K25.9 - GASTRIC ULCER, UNSP ACUTE OR CHRONIC, W/O HEMOR OR PERF Status: Acute Current Visit: Yes Qualifiers: Gastric ulcer chronicity: unspecified ulcer chronicity Gastric ulcer complication status: without hemorrhage or perforation Qualified Code(s): K25.9 - Gastric ulcer, unspecified as acute or chronic, without hemorrhage or perforation (3) Constipation SNOMED Code(s): 21748460 ICD Code: K59.00 - CONSTIPATION, UNSPECIFIED Status: Acute Current Visit: Yes Qualifiers: Constipation type: unspecified constipation type Qualified Code(s): K59.00 - Constipation, unspecified - Patient Summary/Data Operative Procedure(s) Performed: egd with cold forceps biopsy - Patient Instructions Diet: Usual Diet as Tolerated, No Alcoholic Beverages Activity: Rest and Relax Today Driving: May Drive Today Notify Provider of: Fever, Increased Pain - Discharge Plan *PRESCRIPTION DRUG MONITORING PROGRAM REVIEWED*: Not Applicable *COPY OF PRESCRIPTION DRUG MONITORING REPORT IN PATIENT KATHLEEN: Not Applicable Prescriptions/Med Rec: Sucralfate [Carafate] 1 gm PO QIDACANDBED #56 tablet metroNIDAZOLE [Flagyl] 500 mg PO Q8H #30 tab Levofloxacin [Levaquin] 500 mg PO DAILY #10 tablet Pantoprazole Sodium [Protonix] 40 mg PO DAILY #90 tablet. Home Medications: Home Meds Ascorbate Calcium [Vitamin C] 500 mg PO DAILY 06/21/20 [History] Cholecalciferol (Vitamin D3) [Vitamin D3] 125 mcg PO DAILY 06/21/20 [History] Cyanocobalamin (Vitamin B-12) [Vitamin B-12] 500 mcg PO DAILY 06/21/20 [History] DULoxetine [Cymbalta] 30 mg PO DAILY 06/21/20 [History] Docusate Sodium 100 mg PO DAILY 06/21/20 [History] Fish Oil/Mckenna-3 Fatty Acids [Fish Oil 1,000 MG] 1 gm PO DAILY 06/21/20 [History] Multivitamin 1 tab PO DAILY 06/21/20 [History] Pregabalin [Lyrica] 75 mg PO BID 06/21/20 [History] Propylene Glycol/Peg 400 [Systane Ultra 0.4-0.3% Eye Drp] 1 drop EYEBOTH BID PRN 06/21/20 [History] buPROPion HCL [Wellbutrin Xl] 300 mg PO DAILY 06/21/20 [History] busPIRone HCl [Buspirone HCl] 7.5 mg PO BID 06/21/20 [History] polyethylene glycoL 3350 [MiraLAX] 17 gm PO BEDTIME 06/21/20 [History] Levofloxacin [Levaquin] 500 mg PO DAILY #10 tablet 06/23/20 [Rx] Pantoprazole Sodium [Protonix] 40 mg PO DAILY #90 tablet. 06/23/20 [Rx] Sucralfate [Carafate] 1 gm PO QIDACANDBED #56 tablet 06/23/20 [Rx] metroNIDAZOLE [Flagyl] 500 mg PO Q8H #30 tab 06/23/20 [Rx] Patient Handouts: Upper Endoscopy, Adult, Venous Thromboembolism Prevention Referrals: Yoav Boyce MD [Physician] - 07/01/20 - Discharge Summary/Plan Comment DC Time >30 min.: No - Patient Data Vitals - Most Recent: Last Vital Signs Temp 97.8 F 06/24/20 08:00 Pulse 80 06/24/20 08:00 Resp 16 06/24/20 08:00 BP 112/54 L 06/24/20 08:00 Pulse Ox 99 06/24/20 08:00 Weight - Most Recent: 58.922 kg Med Orders - Current: Current Medications Acetaminophen (Tylenol) 650 mg PO Q6H PRN PRN Reason: Pain Last Admin: 06/24/20 05:07 Dose: 650 mg Documented by: Bisacodyl (Dulcolax) 10 mg RECTAL BID PRN PRN Reason: Constipation Last Admin: 06/23/20 10:00 Dose: 10 mg Documented by: Bupropion HCl (Wellbutrin Xl) 300 mg PO DAILY [facility] Last Admin: 06/24/20 08:38 Dose: 300 mg Documented by: Buspirone HCl (Buspar) 7.5 mg PO BID [facility] Last Admin: 06/24/20 08:37 Dose: 7.5 mg Documented by: Docusate Sodium (Colace) 200 mg PO DAILY [facility] Last Admin: 06/23/20 08:22 Dose: 200 mg Documented by: Duloxetine HCl (Cymbalta) 30 mg PO DAILY [facility] Last Admin: 06/24/20 08:37 Dose: 30 mg Documented by: Levofloxacin (Levaquin) 750 mg PO Q24H [facility] Last Admin: 06/23/20 18:21 Dose: 750 mg Documented by: Lubiprostone (Amitiza) 24 mcg PO BIDMEALS [facility] Last Admin: 06/23/20 18:16 Dose: 24 mcg Documented by: Metronidazole (Flagyl) 500 mg PO Q8H [facility] Last Admin: 06/24/20 05:08 Dose: 500 mg Documented by: Morphine Sulfate (Morphine) 2 mg IVPUSH Q4H PRN PRN Reason: Pain Last Admin: 06/24/20 08:43 Dose: 2 mg Documented by: Ondansetron HCl (Zofran) 4 mg IVPUSH Q4H PRN PRN Reason: Nausea/Vomiting Last Admin: 06/22/20 22:07 Dose: 4 mg Documented by: Pantoprazole Sodium (Protonix) 40 mg PO 0600 [facility] Last Admin: 06/24/20 05:08 Dose: 40 mg Documented by: Polyethylene Glycol (Miralax) 17 gm PO BID [facility] Last Admin: 06/23/20 20:56 Dose: 17 gm Documented by: Pregabalin (Lyrica) 75 mg PO BID [facility] Last Admin: 06/23/20 20:56 Dose: 75 mg Documented by: Propylene Glycol (Systane Lubricant) 0 ml EYEBOTH BID PRN PRN Reason: Dry Eyes Sodium Chloride (Saline Flush) 10 ml FLUSH ASDIRECTED PRN PRN Reason: Keep Vein Open Last Admin: 06/24/20 08:44 Dose: 10 ml Documented by: Sucralfate (Carafate) 1 gm PO QIDACANDBED [facility] Last Admin: 06/24/20 08:37 Dose: 1 gm Documented by: Discontinued Medications Albuterol/Ipratropium (Duoneb 3.0-0.5 Mg/3 Ml) 3 ml NEB ONETIME ONE Stop: 06/22/20 07:52 Last Admin: 06/22/20 08:11 Dose: 3 ml Documented by: Buspirone HCl (Buspar) Confirm Administered Dose 10 mg .ROUTE .STK-MED ONE Stop: 06/23/20 20:48 Last Admin: 06/23/20 20:55 Dose: Not Given Documented by: Diatrizoate Meglum/Diatrizoate Sod (Gastrografin 37%) 30 ml PO . DIRECTED ONE Stop: 06/21/20 18:02 Last Admin: 06/21/20 18:11 Dose: 30 ml Documented by: Lactated Ringer's (Ringers, Lactated) 1,000 mls @ 125 mls/hr IV ASDIRECTED [facility] Last Admin: 06/23/20 03:46 Dose: 125 mls/hr Documented by: Lactated Ringer's (Ringers, Lactated) 1,000 mls @ 999 mls/hr IV ASDIRECTED [facility] Last Admin: 06/21/20 17:55 Dose: 999 mls/hr Documented by: Levofloxacin/Dextrose 750 mg/ (Premix) 150 mls @ 100 mls/hr IV Q24H [facility] Last Admin: 06/22/20 18:22 Dose: 100 mls/hr Documented by: Metronidazole 500 mg/ Premix 100 mls @ 100 mls/hr IV Q8H [facility] Last Admin: 06/21/20 20:48 Dose: Not Given Documented by: Metronidazole 500 mg/ Premix 100 mls @ 100 mls/hr IV Q8H [facility] Last Admin: 06/23/20 05:13 Dose: 100 mls/hr Documented by: Pantoprazole Sodium 80 mg/ (Sodium Chloride) 100 mls @ 200 mls/hr IV .BOLUS ONE Stop: 06/22/20 08:34 Last Admin: 06/22/20 08:52 Dose: 200 mls/hr Documented by: Iopamidol (Isovue-370 (76%)) 67 ml IV . DIRECTED ONE Stop: 06/21/20 17:33 Last Admin: 06/21/20 18:11 Dose: 67 ml Documented by: Morphine Sulfate (Morphine) 2 mg IVPUSH ONETIME ONE Stop: 06/22/20 12:07 Last Admin: 06/22/20 12:27 Dose: 2 mg Documented by: Pantoprazole Sodium (Protonix) 40 mg PO 0600 [facility] Sodium Biphosphate/Sodium Phosphate (Fleet Enema) 133 ml RECTAL ONETIME ONE Stop: 06/23/20 13:19 Last Admin: 06/23/20 14:26 Dose: 133 ml Documented by:
[2020-06-24] MEDS: Polyethylene Glycol 3350 Powder 17 GM Packet PO SCH (10:40)
[2020-06-24] MEDS: Docusate Sodium 100 MG Cap PO SCH (10:41)
[2020-06-24] MEDS: Pregabalin 75 MG Cap PO SCH (10:41)
[2020-06-24] MEDS: Lubiprostone 24 MCG Cap PO SCH (10:42)
== END 2020-06-24 11:45 | disposition home or self-care (01) | DRG 244 ==
LOC: FB.MS 15:37
PROVIDERS: ADMIT Surgery; ATTEND Surgery
PROC: 0DB68ZX Excision of Stomach, Via Natural or Artificial Opening Endoscopic, Diagnostic (ICD-10-PCS; principal; 2020-06-21)
DX: K57.32 Diverticulitis of large intestine without perforation or abscess without bleeding (principal); K25.9 Gastric ulcer, unspecified as acute or chronic, without hemorrhage or perforation; K59.09 Other constipation; D50.9 Iron deficiency anemia, unspecified; F32.9 Major depressive disorder, single episode, unspecified; F41.9 Anxiety disorder, unspecified; K58.0 Irritable bowel syndrome with diarrhea; H04.129 Dry eye syndrome of unspecified lacrimal gland; Z20.822 Contact with and (suspected) exposure to COVID-19; H53.2 Diplopia; Z90.49 Acquired absence of other specified parts of digestive tract; Z79.899 Other long term (current) drug therapy; Z91.011 Allergy to milk products; Z91.018 Allergy to other foods; Z90.710 Acquired absence of both cervix and uterus
CPT/HCPCS: 00731-QZ; 36415; 74177; 80053; 85025; 86850; 86900; 86901; 88104; 88305; 88342; 94640; A9270-GY; C9113; J1956; J2270; J2405; J3490; J7120; J7620-GY; Q9963; Q9967; U0002